=== PATIENT | male | born 1995 | race African-American/Black ===

== ENCOUNTER 2017-10-11 14:36 | Emergency (ER) | END 2017-10-11 16:28 | disposition home or self-care (01) ==

== ENCOUNTER 2018-03-16 18:36 | Emergency (ER) | END 2018-03-16 19:40 | disposition home or self-care (01) ==

== ENCOUNTER 2018-10-13 18:10 | Emergency (ER) | payer OTHER ==
[~2018-10-13] VITALS: Wt 80.0 kg
[~2018-10-13 18:10] MED LIST: CYCL10TA7 PO; NAPR-985 PO
[2018-10-13 20:37] VITALS: BP 118/77; PULSE 60; RESP 16
--- NOTE | 2018-10-13 21:50 | ERD ---
ER Documentation Chief Complaint Chief Complaint feeling diaphoretic and mild anxiety while taking a test today. some nausea HPI 22-year-old male with past medical history of asthma presenting to the emergency department complaining of sudden onset diaphoresis, bilateral upper extremity tingling and some shortness of breath and a feeling of panic which began at 4:30 PM today while taking statistics exam. He states he is significantly improved now and is symptom-free. He denies having similar symptoms in the past. He denies homicidal or suicidal ideation. He denies any chest pain or shortness of breath at this time. No other symptoms reported currently. ROS All systems reviewed and are negative except as per history of present illness. Medications Home Meds Active Scripts Naproxen* (Naprosyn*) 500 Mg Tablet, 500 MG PO BID PRN for PAIN AND/OR INFLAMMATION, #30 TAB Prov:GINO SWAIN PA-C 03/16/18 Cyclobenzaprine Hcl* (Cyclobenzaprine Hcl*) 10 Mg Tablet, 10 MG PO TID, #15 TAB Prov:GINO SWAIN PA-C 03/16/18 Allergies Allergies: Coded Allergies: No Known Allergy (Unverified , 10/11/17) PMhx/Soc Medical and Surgical Hx: pt denies Medical Hx, pt denies Surgical Hx Hx Alcohol Use: No Hx Substance Use: No Hx Tobacco Use: Yes Smoking Status: Never smoker FmHx Family History: No diabetes Physical Exam Vitals Vital Signs Date Temp Pulse Resp B/P (MAP) Pulse Ox O2 O2 Flow FiO2 Time Delivery Rate 10/13/18 98.3 60 16 118/77 98 Room Air 20:37 (91) 10/13/18 97.9 59 18 140/80 98 18:19 (100) Physical Exam Const: No acute distress Head: Atraumatic Eyes: Normal Conjunctiva ENT: Normal External Ears, Nose and Mouth. Neck: Full range of motion. No meningismus. Resp: Clear to auscultation bilaterally Cardio: Regular rate and rhythm, no murmurs Skin: No petechiae or rashes Back: No midline or flank tenderness Ext: No cyanosis, or edema Neur: Awake and alert Psych: Normal Mood and Affect. Denies homicidal or suicidal ideation. Results 24 hrs Laboratory Tests Test 10/13/18 19:19 Troponin I < 0.012 ng/ml Procedures/MDM 22-year-old male presenting to the emergency department with signs and symptoms most consistent with anxiety reaction while taking statistics exam today. Patient denied any current chest pain or palpitations or shortness of breath. Patient did have some diffuse ST segment elevation, but the patient currently adamantly denied any chest pain. This finding could be due to early repolarization and much less likely ACS or pericarditis. I did discuss this case with attending ED physician, Dr. Beth Gregory, who recommended ordering troponin on this patient and discharging if within normal limits and patient is feeling well. Troponin was within normal limits and the patient was stable and appropriate for discharge and further outpatient management. History, physical exam, work-up most consistent with anxiety reaction and patient will be discharged home and advised follow-up with his primary care physician within the next 24 to 48 hours and return to the department immediately for any new or worsening or concerning symptoms. He was in agreement with the diagnosis, plan, need for follow-up, return precautions and questions and concerns were addressed prior to discharge. EKG: Interpreted by ED physician. Rate/Rhythm: Sinus bradycardia with rate of 55 bpm[address] QRS, ST, T-waves: Early repolarization with diffuse ST segment elevation. Impression: No evidence of ischemia or arrhythmia Departure Diagnosis: Primary Impression: Anxiety reaction Condition: Fair Patient Instructions: Your Body's Response to Anxiety, Anxiety Reaction Referrals: [facility] YOU HAVE RECEIVED A MEDICAL SCREENING EXAM AND THE RESULTS INDICATE THAT YOU DO NOT HAVE A CONDITION THAT REQUIRES URGENT TREATMENT IN THE EMERGENCY DEPARTMENT. FURTHER EVALUATION AND TREATMENT OF YOUR CONDITION CAN WAIT UNTIL YOU ARE SEEN IN YOUR DOCTORS OFFICE WITHIN THE NEXT 1-2 DAYS. IT IS YOUR RESPONSIBILITY TO MAKE AN APPOINTMENT FOR FOLOW-UP CARE. IF YOU HAVE A PRIMARY DOCTOR --you should call your primary doctor and schedule an appointment IF YOU DO NOT HAVE A PRIMARY DOCTOR YOU CAN CALL OUR PHYSICIAN REFERRAL HOTLINE AT IF YOU CAN NOT AFFORD TO SEE A PHYSICIAN YOU CAN CHOSE FROM THE FOLLOWING [facility] [address] [facility] [address] [facility] [address] [facility] [address] [facility] [address] [facility] [facility] [address] Additional Instructions: Call your primary care doctor TOMORROW for an appointment during the next 1-2 days.See the doctor sooner or return here if your condition worsens before your appointment time. GINO SWAIN PA-C Oct 13, 2018 21:50
== END 2018-10-13 20:38 | disposition home or self-care (01) ==
LOC: FTE 18:10
DX: F41.1 Generalized anxiety disorder (principal); Z87.891 Personal history of nicotine dependence
CPT/HCPCS: 84484; 93005; Z7502